=== PATIENT | male | born 1940 | race Native Hawaiian/Other Pacific Islander ===

== ENCOUNTER 2016-05-01 09:23 | Inpatient (IN) | payer OTHER | END 2016-05-28 12:36 | disposition still patient (30) | LOC: PAVC 09:23 | PROVIDERS: ADMIT Internal Medicine | DX: M62.81 Muscle weakness (generalized) (principal); R13.11 Dysphagia, oral phase; R48.9 Unspecified symbolic dysfunctions; L89.152 Pressure ulcer of sacral region, stage 2; L89.212 Pressure ulcer of right hip, stage 2; L89.222 Pressure ulcer of left hip, stage 2; Z89.9 Acquired absence of limb, unspecified ==

== ENCOUNTER 2016-05-28 12:55 | Inpatient (IN) | payer OTHER | END 2016-05-30 16:30 | disposition home or self-care (01) | LOC: PAVC 12:55 | PROVIDERS: ADMIT Internal Medicine | DX: M62.81 Muscle weakness (generalized) (principal); R13.11 Dysphagia, oral phase; R48.9 Unspecified symbolic dysfunctions; L89.212 Pressure ulcer of right hip, stage 2; L89.222 Pressure ulcer of left hip, stage 2; Z89.9 Acquired absence of limb, unspecified ==

== ENCOUNTER 2017-07-07 12:29 | Outpatient (CLI) | payer OTHER ==
[2017-07-07 13:51] LABS: POTASSIUM 3.7 mmol/L (3.6-5.2)
[2017-07-07 14:06] LABS: PLATELET COUNT 342 K/uL (142-355)
== END 2017-07-07 20:02 | disposition home or self-care (01) ==
LOC: LAB 12:29
PROVIDERS: Emergency Medicine
DX: L89.314 Pressure ulcer of right buttock, stage 4 (principal); Z89.611 Acquired absence of right leg above knee; Z89.612 Acquired absence of left leg above knee
CPT/HCPCS: 80048; 82040; 84134; 85027

== ENCOUNTER 2017-08-18 11:18 | Outpatient (CLI) | payer OTHER ==
[2017-08-18 12:12] LABS: PLATELET COUNT 195 K/uL (142-355)
[2017-08-18 12:37] LABS: POTASSIUM 4.2 mmol/L (3.6-5.2)
== END 2017-08-18 22:30 | disposition home or self-care (01) ==
LOC: LAB 11:18
PROVIDERS: Internal Medicine Infectious Disease
DX: M86.8X8 Other osteomyelitis, other site (principal); I10 Essential (primary) hypertension
CPT/HCPCS: 80048; 85027

== ENCOUNTER 2017-08-21 12:31 | Outpatient (CLI) | payer OTHER ==
[2017-08-21] MEDS ORDERED: ASPIRIN 81 LOW81 MG PO (13:16)
[2017-08-21] MEDS ORDERED: TYLENOL325 MG OR (13:16)
[2017-08-21] MEDS ORDERED: CEFEPIME2 GM IV (13:18)
[2017-08-21] MEDS ORDERED: DOCU SOFT100 MG PO (13:19)
[2017-08-21] MEDS ORDERED: HM MILK OF400 MG/5 M PO (13:20)
[2017-08-21] MEDS ORDERED: PRINIVIL10 MG OR (13:20)
[2017-08-21] MEDS ORDERED: METO25TA2 PO (13:21)
[2017-08-21] MEDS ORDERED: [UNRECOGNIZED DRUG - CODE] PO (13:23)
[2017-08-21] MEDS ORDERED: MEGESTROL AC PO (13:23)
[2017-08-21] MEDS ORDERED: DULOXETINE HCL30 MG PO (13:24)
[2017-08-21] MEDS ORDERED: MELOXICAM7.5 MG PO (13:24)
[2017-08-21] MEDS ORDERED: LIPITOR20 MG PO (13:24)
[2017-08-21] MEDS ORDERED: REMERON30 MG PO (13:25)
[2017-08-21] MEDS ORDERED: MS CONTIN30 MG PO (13:26)
[2017-08-21] MEDS ORDERED: HYDR5TAB9 PO (13:26)
== END 2017-08-21 12:40 | disposition short-term general hospital (02) ==
LOC: AMB 12:31
DX: R41.82 Altered mental status, unspecified (principal)
CPT/HCPCS: A0425; A0429

== ENCOUNTER 2017-08-21 12:47 | Emergency (ER) | payer OTHER ==
[~2017-08-21] VITALS: Ht 106.7 cm
[2017-08-21] MEDS ORDERED: TYLENOL325 MG OR (13:16)
[2017-08-21] MEDS ORDERED: ASPIRIN 81 LOW81 MG PO (13:16)
[2017-08-21] MEDS ORDERED: CEFEPIME2 GM IV (13:18)
[2017-08-21] MEDS ORDERED: DOCU SOFT100 MG PO (13:19)
[2017-08-21] MEDS ORDERED: HM MILK OF400 MG/5 M PO (13:20)
[2017-08-21] MEDS ORDERED: PRINIVIL10 MG OR (13:20)
[2017-08-21] MEDS ORDERED: METO25TA2 PO (13:21)
[2017-08-21] MEDS ORDERED: [UNRECOGNIZED DRUG - CODE] PO (13:23)
[2017-08-21] MEDS ORDERED: MEGESTROL AC PO (13:23)
[2017-08-21] MEDS ORDERED: DULOXETINE HCL30 MG PO (13:24)
[2017-08-21] MEDS ORDERED: LIPITOR20 MG PO (13:24)
[2017-08-21] MEDS ORDERED: MELOXICAM7.5 MG PO (13:24)
[2017-08-21] MEDS ORDERED: REMERON30 MG PO (13:25)
[2017-08-21] MEDS ORDERED: HYDR5TAB9 PO (13:26)
[2017-08-21] MEDS ORDERED: MS CONTIN30 MG PO (13:26)
[2017-08-21 13:55] LABS: POTASSIUM 4.9 mmol/L (3.6-5.2)
[2017-08-21 13:56] LABS: PLATELET COUNT 138 K/uL (142-355)
[2017-08-21 14:18] LABS: PARTIAL THROMBOPLASTIN TIME 29.4 SECONDS (24.5-33.6)
[2017-08-21 19:06] VITALS: BP 159/79; TEMP 98.1
== END 2017-08-21 19:09 | disposition short-term general hospital (02) ==
LOC: ED 12:47
PROVIDERS: Emergency Medicine
DX: R41.82 Altered mental status, unspecified (principal); E86.0 Dehydration; N18.9 Chronic kidney disease, unspecified; E87.1 Hypo-osmolality and hyponatremia; D64.89 Other specified anemias; I45.19 Other right bundle-branch block
CPT/HCPCS: 80053; 82550; 82553; 83605; 83615; 84484; 85027; 85610; 85730; 87040; 93005; 96365; 96374; 96375; 99284; J0692; J1200; J2060

== ENCOUNTER 2017-08-21 18:46 | Outpatient (CLI) | payer OTHER ==
[~2017-08-21 18:46] MED LIST: ASPIRIN 81 LOW81 MG PO; CEFEPIME2 GM IV; DOCU SOFT100 MG PO; DULOXETINE HCL30 MG PO; HM MILK OF400 MG/5 M PO; HYDR5TAB9 PO; LIPITOR20 MG PO; MEGESTROL AC PO; MELOXICAM7.5 MG PO; METO25TA2 PO; MS CONTIN30 MG PO; PRINIVIL10 MG OR; REMERON30 MG PO; TYLENOL325 MG OR; [UNRECOGNIZED DRUG - CODE] PO
== END 2017-08-21 19:08 | disposition short-term general hospital (02) ==
LOC: AMB 18:46
DX: R41.82 Altered mental status, unspecified (principal); E86.0 Dehydration; N18.9 Chronic kidney disease, unspecified; E87.1 Hypo-osmolality and hyponatremia; D64.89 Other specified anemias; I45.19 Other right bundle-branch block
CPT/HCPCS: A0425; A0427

== ENCOUNTER 2017-10-20 10:53 | Outpatient (CLI) | payer OTHER ==
[2017-10-20 12:17] LABS: PLATELET COUNT 312 K/uL (142-355)
[2017-10-20 12:45] LABS: POTASSIUM 3.6 mmol/L (3.6-5.2)
== END 2017-10-20 21:53 | disposition home or self-care (01) ==
LOC: LABW 10:53
PROVIDERS: Internal Medicine
DX: N18.3 Chronic kidney disease, stage 3 (moderate) (principal); Z09 Encounter for follow-up examination after completed treatment for conditions other than malignant neoplasm
CPT/HCPCS: 36415; 80053; 81000; 82043; 82306; 82330; 82570; 82607; 83735; 83970; 84100; 84155; 84439; 84443; 84550; 85027

== ENCOUNTER 2018-01-22 10:34 | Outpatient (CLI) | payer OTHER | END 2018-01-22 19:06 | disposition home or self-care (01) | LOC: LAB 10:34 | PROVIDERS: Internal Medicine | DX: N18.3 Chronic kidney disease, stage 3 (moderate) (principal); N39.0 Urinary tract infection, site not specified | CPT/HCPCS: 80053; 81000 ==

== ENCOUNTER 2018-04-12 14:10 | Outpatient (CLI) | payer OTHER | END 2018-04-12 14:23 | disposition short-term general hospital (02) | LOC: AMB 14:10 | DX: I46.9 Cardiac arrest, cause unspecified (principal) | CPT/HCPCS: A0425; A0433 ==

== ENCOUNTER 2018-04-12 14:22 | Emergency (ER) | payer OTHER ==
[~2018-04-12] VITALS: Ht 106.7 cm; Wt 44.5 kg
[2018-04-12 16:07] VITALS: BP 00/00; TEMP 0
== END 2018-04-12 16:07 | disposition expired ==
LOC: ED 14:22
DX: I46.9 Cardiac arrest, cause unspecified (principal)
CPT/HCPCS: 92950; 96374; 96375; 99291; J0171; J3490